=== PATIENT | male | born 1975 | race Caucasian/White ===

== ENCOUNTER 2021-10-24 00:10 | Emergency (ER) | payer BC ==
[~2021-10-24] VITALS: Ht 172.7 cm; Wt 72.6 kg
[2021-10-24 00:10] VITALS: BP 150/81
[2021-10-24 00:20] VITALS: BP 110/66
[2021-10-24] MEDS ORDERED: BACITRACIN OINT 500 UNITS/GM PKT TP ONE (00:20)
--- NOTE | 2021-10-24 00:20 | NUR ---
PT TAKEN TO BED 1.
--- NOTE | 2021-10-24 00:31 | NUR ---
46 YO M BIBA FROM HOME WITH C/C OF 10/10 FACIAL PAIN X40 MINS S/P ASSUALT BY SISTER'S . PT HAS BILAT EYE SWELLING AND LAC ABOUT LEFT EYEBROW. DENIES LOC. PT NOT ON BLOOD THINNERS. PT STATES HE HAS BEEN DRINKING BEER ALL DAY. DENIES N/V. DENIES VISION CHNAGED AND RINGING IN EARS. HX:HTN, DM RX:METFORMIN ALLERGY:REGLAN AND TOPAMAX
[2021-10-24 00:33] VITALS: BP 110/66
--- NOTE | 2021-10-24 00:39 | NUR ---
PD AT BEDSIDE.
[2021-10-24] MEDS ORDERED: HYDROcodone/APAP 5/325 MG 1 TAB TAB PO ONE (00:40)
--- NOTE | 2021-10-24 00:45 | NUR ---
POLICE REPORT REF #[id number]
[2021-10-24] MEDS ORDERED: MORPHINE SULFATE 4 MG/ML SYR IM ONE (01:35)
--- NOTE | 2021-10-24 01:35 | NUR ---
PT REPORTS 10/10 FACIAL PAIN, ERMD MADE AWARE.
[2021-10-24] MEDS ORDERED: LIDOCAINE/EPI 1% 1:100000 20 ML VIAL INJ ONE (01:36)
--- NOTE | 2021-10-24 01:36 | NUR ---
RECIEVED VERBAL ORDER FROM YODIT TO PULL LIDOCAINE WITH EPI, ERMD WITH ME TO SELECT THE ONE HE WANTS.
--- NOTE | 2021-10-24 01:43 | NUR ---
ERMD AT BEDSIDE FOR PROCEDURE.
--- NOTE | 2021-10-24 02:16 | NUR ---
PT PRESSED CALL LIGHT AND EMERGENCY BUTTON OVER 4-5 TIMES. PT REQUESTING PAIN MEDICATION. CORDELL MONSIVAIS MADE AWARE EACH TIME. CORDELL SPOKE TO PT.
--- NOTE | 2021-10-24 02:24 | NUR ---
PT PRESSED CODE BLUE. THE WHOLE TEAM WENT IN AND EXPLAINED TO PT NOT TO PRESS THAT BUTTON. PT TOOK HIS PHONE OUT AND BEGAN RECORDING STAFF. CORDELL MONSIVAIS ALREADY SPOKE TO PT ABOUT PAIN MEDICATION.
[2021-10-24] MEDS ORDERED: BACI1PAC6 TP (02:26)
[2021-10-24] MEDS ORDERED: ACET-10509 PO (02:26)
--- NOTE | 2021-10-24 03:10 | NUR ---
David aguilar in EDM - 10/24/21 at 0316 by [facility] PATIENT ELOPED FROM FACILITY. DISCHARGE INSTRUCTIONS NOT GIVEN TO PATIENT. DR. MONSIVAIS NOTIFIED.
--- NOTE | 2021-10-24 03:16 | NUR ---
PT DECIDED TO STAY.
[2021-10-24 03:18] VITALS: BP 112/56
--- NOTE | 2021-10-24 03:18 | NUR ---
Patient discharged with v/s stable. Written and verbal after care instructions given and explained. Patient alert, oriented and verbalized understanding of instructions. Ambulatory with steady gait. All questions addressed prior to discharge. ID band removed. Patient advised to follow up with PMD. Rx of tylenol and bacitracin given. Patient educated on indication of medication including possible reaction and side effects. Opportunity to ask questions provided and answered.
--- NOTE | 2021-10-24 03:18 | NUR ---
i offered pt a new shirt since we threw out his shirt after the patient eloped. pt said he can use his. i took it out of the trash and pt wore it. i also sent up [employer] for him.
== END 2021-10-24 03:18 | disposition home or self-care (01) ==
LOC: MED 00:10
DX: S01.412A Laceration without foreign body of left cheek and temporomandibular area, initial encounter (principal); S01.112A Laceration without foreign body of left eyelid and periocular area, initial encounter; E11.9 Type 2 diabetes mellitus without complications; I10 Essential (primary) hypertension; Z79.899 Other long term (current) drug therapy; Z88.8 Allergy status to other drugs, medicaments and biological substances; Y04.0XXA Assault by unarmed brawl or fight, initial encounter; Y93.89 Activity, other specified; Y92.89 Other specified places as the place of occurrence of the external cause; Y99.8 Other external cause status
CPT/HCPCS: 12013; 70450; 70486; 72125; 96372; 99285; J2001; J2270